=== PATIENT | male | born 1955 | race Caucasian/White ===

== ENCOUNTER → 2019-12-28 | Outpatient (CLI) | payer OTHER | LOC: COL.PUL 12-22 07:42 | DX: R06.02 Shortness of breath (principal); F17.210 Nicotine dependence, cigarettes, uncomplicated ==

== ENCOUNTER → 2020-01-07 | Outpatient (CLI) | payer OTHER | LOC: COL.RAD 10:03 | DX: Z13.6 Encounter for screening for cardiovascular disorders (principal); F17.210 Nicotine dependence, cigarettes, uncomplicated ==